=== PATIENT | male | born 1960 | race Caucasian/White ===

== ENCOUNTER 2016-11-15 14:11 | Emergency (ER) | payer MEDICAID ==
[2016-11-15 14:20] VITALS: BMI 34.9
[2016-11-15 14:24] VITALS: BP 134/68; PULSE 74; RESP 18; TEMP 98.1; O2SAT 97
--- NOTE | 2016-11-15 14:43 | C.PDOC ---
History Of Present Illness Pt c/o chronic right knee pain. He states that he ran out of his narcotic pain medications. Time Seen by Provider: 11/15/16 14:34 Chief Complaint (Nursing): Lower Extremity Problem/Injury History Per: Patient Onset/Duration Of Symptoms: Days (chronic) Current Symptoms Are (Timing): Still Present Severity: Moderate Additional History Per: Prior Records Past Medical History Reviewed: Historical Data, Nursing Documentation, Vital Signs Vital Signs: Last Vital Signs Temp 98.1 F 11/15/16 14:23 Pulse 74 11/15/16 14:23 Resp 18 11/15/16 14:23 BP 134/68 11/15/16 14:23 Pulse Ox 97 11/15/16 14:43 - Medical History PMH: Anxiety, Arthritis (right knee , needs knee repalcement), Asthma, Chronic Pain (of right knee) - [facility] Procedures ARTHROCENTESIS (02/03/15) DRAINAGE OF PARATHYROID GLAND, PERCUTANEOUS APPROACH, DIAGN (12/10/15) Family History: States: Unknown Family Hx - Social History Hx Tobacco Use: Yes Hx Alcohol Use: No Hx Substance Use: No - Immunization History Hx Tetanus Toxoid Vaccination: Yes (2 yrs ago) Hx Influenza Vaccination: Yes Hx Pneumococcal Vaccination: Yes Review Of Systems Except As Marked, All Systems Reviewed And Found Negative. Constitutional: Negative for: Fever, Weakness Cardiovascular: Negative for: Chest Pain Respiratory: Negative for: Shortness of Breath Gastrointestinal: Negative for: Vomiting, Abdominal Pain Musculoskeletal: Negative for: Neck Pain, Back Pain, Foot Pain Skin: Negative for: Rash Neurological: Negative for: Weakness, Numbness, Seizures, Altered Mental Status Physical Exam - Physical Exam Appears: Non-toxic, No Acute Distress Skin: Normal Color, Warm, Dry, No Rash Head: Atraumatic, Normacephalic Eye(s): bilateral: Normal Inspection, PERRL, EOMI Neck: Normal ROM, Supple Cardiovascular: Rhythm Regular Respiratory: Normal Breath Sounds, No Accessory Muscle Use Gastrointestinal/Abdominal: Soft, No Tenderness Back: No CVA Tenderness, No Vertebral Tenderness Extremity: Normal ROM, Tenderness (mild right knee), No Pedal Edema, No Calf Tenderness, Capillary Refill (wnl), No Deformity, Swelling (small effusion of right knee) Extremity: Bilateral: Normal Color And Temperature Pulses: Right Dorsalis Pedis: Normal Neurological/Psych: Oriented x3, Normal Motor, Normal Sensation ED Course And Treatment O2 Sat by Pulse Oximetry: 97 Pulse Ox Interpretation: Normal Disposition Counseled Patient/Family Regarding: Diagnosis, Need For Followup, Rx Given, Smoking Cessation - Disposition Disposition: HOME/ ROUTINE Disposition Time: 14:59 Condition: IMPROVED Additional Instructions: Follow up with your doctor and with an orthopedic surgeon for further evaluation and treatment. Return to the ER if you develop redness, fever, worsening of symptoms or if you have any other concerns. Prescriptions: Celecoxib 200 mg PO DAILY #30 capsule traMADol/Acetaminophen [Ultracet 325 MG-37.5 MG] 1 tab PO Q4 PRN #30 tab PRN Reason: Pain, Severe (8-10) Instructions: Knee Pain (ED) - Clinical Impression Clinical Impression: Chronic pain of right knee
== END 2016-11-15 15:12 | disposition home or self-care (01) ==
LOC: C.ER 14:11
DX: M25.561 Pain in right knee (principal); G89.29 Other chronic pain

== ENCOUNTER 2017-02-01 21:52 | Emergency (ER) | payer MEDICAID ==
[2017-02-01 21:52] VITALS: BMI 34.9
[2017-02-01] MEDS ORDERED: Albuterol-Ipratrop 3 mg / 0.5 (3 ml) UD ONE (22:17)
[2017-02-01] MEDS ORDERED: Albuterol-Ipratrop 3 mg / 0.5 (3 ml) UD IH STA (22:33)
--- NOTE | 2017-02-01 22:35 | C.PDOC ---
History Of Present Illness 57 yo male w/PMHx of asthma come in for evaluation of gradual onset of SOB for past 2 days. Today, noted some wheezing. Pt admits, was seen by PMD 2 days ago when received medication for asthma " was unable to fill it out". Otherwise, pt denies fever, chills, recent illness, headache, dizziness, sore throat or tightness, neck pain, CP, diaphoresis, palpitation, abd. pain, N/V, back pain, UTI sx, edema. Ambulate to ED, appears comfortable, not in resp. distress. Time Seen by Provider: 02/01/17 22:21 Chief Complaint (Nursing): Shortness Of Breath History Per: Patient Onset/Duration Of Symptoms: Gradual Current Symptoms Are (Timing): Still Present Past Medical History Reviewed: Historical Data, Nursing Documentation, Vital Signs Vital Signs: Last Vital Signs Temp 97.2 F L 02/01/17 22:12 Pulse 80 02/01/17 22:12 Resp 20 02/01/17 22:18 BP 132/75 02/01/17 22:12 Pulse Ox 99 02/01/17 22:34 - Medical History PMH: Anxiety, Arthritis (right knee , needs knee repalcement), Asthma, Chronic Pain (of right knee) Denies: Kidney Stones, Chronic Kidney Disease Surgical History: Denies: CABG Other Surgeries: not contributory - [facility] Procedures ARTHROCENTESIS (02/03/15) DRAINAGE OF PARATHYROID GLAND, PERCUTANEOUS APPROACH, DIAGN (12/10/15) Family History: States: Unknown Family Hx - Social History Hx Tobacco Use: Yes Hx Alcohol Use: No Hx Substance Use: No - Immunization History Hx Tetanus Toxoid Vaccination: Yes (2 yrs ago) Hx Influenza Vaccination: Yes Hx Pneumococcal Vaccination: Yes Review Of Systems Except As Marked, All Systems Reviewed And Found Negative. Constitutional: Negative for: Fever, Chills Eyes: Negative for: Vision Change ENT: Negative for: Ear Discharge, Nose Discharge, Nose Congestion, Throat Pain, Throat Swelling Cardiovascular: Negative for: Chest Pain, Palpitations, Edema, Light Headedness Respiratory: Positive for: Shortness of Breath, Wheezing. Negative for: Cough, SOB with Excertion, Pleuritic Pain, Sputum Gastrointestinal: Negative for: Nausea, Vomiting, Abdominal Pain, Diarrhea Genitourinary: Negative for: Incontinence Musculoskeletal: Negative for: Neck Pain, Back Pain Neurological: Negative for: Weakness, Numbness, Altered Mental Status, Headache , Dizziness Physical Exam - Physical Exam Appears: Well, No Acute Distress Skin: Normal Color, Warm, Dry, No Rash Eye(s): bilateral: PERRL Ear(s): Bilateral: Normal Nose: No Discharge Oral Mucosa: Moist, No Drooling Throat: No Erythema, No Exudate, No Drooling Neck: Supple Cardiovascular: Rhythm Regular, No JVD, Other ((-) carotid bruits) Respiratory: No Stridor, Wheezing (scattered B/L expiratory wheezing , BS equal B/L.) Gastrointestinal/Abdominal: Soft, No Tenderness, No Distention, No Guarding Back: No CVA Tenderness Extremity: No Pedal Edema Neurological/Psych: Oriented x3, Normal Speech ED Course And Treatment ECG: Interpreted By Me, Viewed By Me ECG Rhythm: Sinus Rhythm Interpretation Of ECG: SR@71/min, NAD, no acute T wave or ST-T changes. O2 Sat by Pulse Oximetry: 99 Pulse Ox Interpretation: Normal - Radiology CXR: Interpreted by Me, Viewed By Me CXR Interpretation: Yes: No Acute Disease Progress Note: On re-evaluation, pt reports moderate improvement in sx. Pt sts, " dont feel SOB any more". Pt is afebrile, hemodynamicaly stable. Non-toxic. PulsEOx 99% RA. neck: Sipple, (-) JVD, (-) carotid bruits. LUngs: CTA B/L, BS equal B/L. CVS: (+)S1S2, reg. Abd: benign. neuorlogicaly intact. CXR, EKG- noraml study. results discussed with pt, has clinical finidngs c/w asthma exacerbation. Pt advised and ref. to f/u with PMD in 2-3 days for re-eval. return to ED if any worsening or new changes. Disposition Counseled Patient/Family Regarding: Studies Performed, Diagnosis, Need For Followup, Rx Given - Disposition Referrals: Raúl Stevens MD [Medical Doctor] - Disposition Time: 00:01 Condition: STABLE Additional Instructions: Encourage fluids Take medication as prescribed Follow up with PMD in 2-3 days for re-evaluation. Return to ED if any worsening or new changes. Prescriptions: Albuterol HFA [Ventolin HFA 90 mcg/actuation (8 g)] 1 puff IH Q6 #1 inhaler Prednisone [Deltasone] 60 mg PO DAILY #6 tablet Instructions: Asthma (ED) Forms: [employer] [facility] (Slovak) - Clinical Impression Clinical Impression: Asthma
[2017-02-01] MEDS ORDERED: MethylPREDNISolone 40 mg Vial IM STA (23:26)
[2017-02-02 00:28] VITALS: BP 133/83; PULSE 70; RESP 16; TEMP 97.4; O2SAT 97
--- NOTE | 2017-02-02 08:41 | RAD ---
HISTORY: Cough COMPARISON: None available. TECHNIQUE: Chest PA and lateral FINDINGS: Examination limited by habitus. LUNGS: No focal consolidation. Please note that chest x-ray has limited sensitivity for the detection of pulmonary masses. PLEURA: No significant pleural effusion identified. No definite pneumothorax . CARDIOVASCULAR: Heart size appears within normal limits. OSSEOUS STRUCTURES: Degenerative changes. VISUALIZED UPPER ABDOMEN: Unremarkable. OTHER FINDINGS: None. IMPRESSION: No focal consolidation, significant pleural effusion, or definite pneumothorax identified.
--- NOTE | 2017-02-04 23:52 | CARD ---
APPROVED REPORT EKG Measurement Heart [id number] <Conclusion> Normal sinus rhythm with sinus arrhythmia Normal ECG
== END 2017-02-02 00:27 | disposition home or self-care (01) ==
LOC: C.ER 21:52
DX: J45.909 Unspecified asthma, uncomplicated (principal); Z72.0 Tobacco use
CPT/HCPCS: 71020; 93005; 96372; 99283; J2920

== ENCOUNTER 2017-06-10 12:12 | Emergency (ER) | payer MEDICAID ==
[2017-06-10 12:44] VITALS: BMI 32.6
[2017-06-10 12:48] VITALS: BP 146/85; PULSE 72; RESP 18; TEMP 98.1; O2SAT 98
--- NOTE | 2017-06-10 13:25 | C.PDOC ---
History Of Present Illness 57 year old male with no significant PMHx presents to the ED with complaints of right sided mid-back pain for 2 days. Patient reports pain is worse with movement. Patient notes he swims daily and has taken Ibuprofen with no relief. Patient denies injury, chest pain, shortness of breath, incontinence, heavy lifting, weakness, numbness, or other complaints at this time Time Seen by Provider: 06/10/17 12:55 Chief Complaint (Nursing): Back Pain History Per: Patient History/Exam Limitations: no limitations Current Symptoms Are (Timing): Still Present Quality Of Discomfort: "Pain" Associated Symptoms: None Exacerbating Factor(s): Movement Recent travel outside of the [place]: No Past Medical History Reviewed: Historical Data, Nursing Documentation, Vital Signs Vital Signs: Last Vital Signs Temp 98.1 F 06/10/17 12:43 Pulse 72 06/10/17 12:43 Resp 18 06/10/17 12:43 BP 146/85 06/10/17 12:43 Pulse Ox 98 06/10/17 20:29 - Medical History PMH: Anxiety, Arthritis (right knee , needs knee repalcement), Asthma, Chronic Pain (of right knee) Surgical History: Denies: CABG - [facility] Procedures ARTHROCENTESIS (02/03/15) DRAINAGE OF PARATHYROID GLAND, PERCUTANEOUS APPROACH, DIAGN (12/10/15) Family History: States: Unknown Family Hx - Social History Hx Tobacco Use: Yes Hx Alcohol Use: No Hx Substance Use: No - Immunization History Hx Tetanus Toxoid Vaccination: Yes (2 yrs ago) Hx Influenza Vaccination: Yes Hx Pneumococcal Vaccination: Yes Review Of Systems Constitutional: Negative for: Fever, Chills Cardiovascular: Negative for: Chest Pain, Palpitations Respiratory: Negative for: Cough, Shortness of Breath Gastrointestinal: Negative for: Nausea, Vomiting, Abdominal Pain Musculoskeletal: Positive for: Back Pain Physical Exam - Physical Exam Appears: Non-toxic, No Acute Distress Skin: Warm, Dry, No Rash, Other (no swelling, no erythema to right mid-back ) Head: Atraumatic, Normacephalic, No Tenderness Eye(s): bilateral: Normal Inspection, PERRL, EOMI Oral Mucosa: Moist Neck: Supple Cardiovascular: Rhythm Regular, No Murmur Respiratory: No Rales, No Rhonchi, No Wheezing Gastrointestinal/Abdominal: Soft, No Tenderness, No Distention, No Guarding, No Rebound Back: No Vertebral Tenderness, Muscle Spasm (right thoracic area), Other ( tenderness to lateral thoracic back) Extremity: Normal ROM, No Tenderness Neurological/Psych: Oriented x3, Normal Speech, Normal Cognition ED Course And Treatment O2 Sat by Pulse Oximetry: 98 (RA) Pulse Ox Interpretation: Normal - Other Rad Chest and Right Ribs XR X-Ray: Viewed By Me, Read By Radiologist Interpretation: FINDINGS: RIGHT RIBS: No no acute fracture or focal lesion visualized. LUNGS: Clear. PLEURA: No pneumothorax or pleural fluid. CARDIOVASCULAR: Normal sized heart. No pulmonary vascular congestion. OTHER FINDINGS: None. IMPRESSION: No acute rib fracture or focal lesion. Clear lungs. Progress Note: Chest and Ribs XR was ordered. Patient was given Toradol and Valium. Medical Decision Making Medical Decision Making: pt with right sided mid back pain, worse with movement, no injury. no sob,, cxr neg for rib fx and ptx, pt feeling greatly improved after 5 mg valium and toradol, will d/c with flexeril. Disposition Counseled Patient/Family Regarding: Studies Performed, Diagnosis, Need For Followup, Rx Given - Disposition Disposition: HOME/ ROUTINE Disposition Time: 14:53 Condition: IMPROVED Additional Instructions: Please continue taking 600 or 800 ibuprofen every 8 hours, with food. Also take Flexeril 10 mg by mouth every 8 hours; makes you sleepy, no driving, working or operating machinery with this medicine. Follow up with your primary care doctor or pain management doctor in a few days. Return to ER for any worse symptoms. Prescriptions: Cyclobenzaprine [Cyclobenzaprine HCl] 10 mg PO Q8 #9 tab Instructions: Muscle Spasm (ED) Forms: [facility] (Serbian), General Discharge Instructions - Clinical Impression Clinical Impression: Thoracic back pain, Back muscle spasm - PA / DOCTOR OF DENTAL MEDICINE / Resident Statement MD/DO has reviewed & agrees with the documentation as recorded. - Scribe Statement The provider has reviewed the documentation as recorded by the Karolinaibmonie Pierre All medical record entries made by the Karolinaibmonie were at my direction and personally dictated by me. I have reviewed the chart and agree that the record accurately reflects my personal performance of the history, physical exam, medical decision making, and the department course for this patient. I have also personally directed, reviewed, and agree with the discharge instructions and disposition.
--- NOTE | 2017-06-10 14:18 | RAD ---
PROCEDURE: Radiographs of the Chest and Right Ribs. HISTORY: right lateral posterior pain COMPARISON: None available. TECHNIQUE: Frontal radiograph of the chest and multiple oblique radiographs of the right ribs were obtained. FINDINGS: RIGHT RIBS: No no acute fracture or focal lesion visualized. LUNGS: Clear. PLEURA: No pneumothorax or pleural fluid. CARDIOVASCULAR: Normal sized heart. No pulmonary vascular congestion. OTHER FINDINGS: None. IMPRESSION: No acute rib fracture or focal lesion. Clear lungs.
== END 2017-06-10 15:01 | disposition home or self-care (01) ==
LOC: C.ER 12:12
DX: M62.830 Muscle spasm of back (principal); M54.6 Pain in thoracic spine
CPT/HCPCS: 71101; 96372; 99284; J1885

== ENCOUNTER 2017-09-11 23:58 | Emergency (ER) | payer MEDICAID ==
[2017-09-11 23:58] VITALS: BMI 32.6
--- NOTE | 2017-09-12 00:54 | C.PDOC ---
History Of Present Illness 57 yo male w/PMHx of Right knee OA, chronic. Pt sts, pain, under PM, come in for re-evaluation of knee pain gradually worsen for past week. Pt admits, pain is chronic, similar in past. Taking currently Flexeril and Meloxicam without improvement, " also had some injection in my knee without improvement". pain is constant, aching, localized over Right knee, worse with movement. Otherwise, pt denies fever, chills, known recent trauma or injury, denies skin changes, Right calf pain, weakness, sensory or vascular deficits to Right leg. Ambulate to ED w / assistance of cane. Time Seen by Provider: 09/12/17 00:17 Chief Complaint (Nursing): Lower Extremity Problem/Injury History Per: Patient Onset/Duration Of Symptoms: Intermittent Episodes Past Medical History Reviewed: Historical Data, Nursing Documentation, Vital Signs Vital Signs: Last Vital Signs Temp 97.8 F 09/12/17 00:07 Pulse 88 09/12/17 00:07 Resp 20 09/12/17 00:07 BP 133/75 09/12/17 00:07 Pulse Ox 95 09/12/17 00:07 - Medical History PMH: Anxiety, Arthritis (right knee , needs knee repalcement), Asthma, Chronic Pain (of right knee) Denies: Kidney Stones, Chronic Kidney Disease Surgical History: Denies: CABG - [facility] Procedures ARTHROCENTESIS (02/03/15) DRAINAGE OF PARATHYROID GLAND, PERCUTANEOUS APPROACH, DIAGN (12/10/15) Family History: States: Unknown Family Hx - Social History Hx Tobacco Use: Yes Hx Alcohol Use: No Hx Substance Use: No - Immunization History Hx Tetanus Toxoid Vaccination: Yes (2 yrs ago) Hx Influenza Vaccination: Yes Hx Pneumococcal Vaccination: Yes Review Of Systems Except As Marked, All Systems Reviewed And Found Negative. Constitutional: Negative for: Fever, Chills ENT: Negative for: Throat Pain Musculoskeletal: Positive for: Other (Right knee pain) Skin: Negative for: Rash, Bruising Neurological: Negative for: Weakness, Numbness Physical Exam - Physical Exam Appears: Well, Non-toxic, No Acute Distress Skin: Normal Color, Warm, No Rash, No Ecchymosis Head: Normacephalic Eye(s): bilateral: PERRL Extremity: No Normal ROM (mod discomfort to Right knee flexion due to pain. Pt wear knee brace.), Tenderness (lateral nad posterior aspect Right with with mild superior/lateral knee effusion. No erythema. no defomrity. No neurovascular deficits to Right foot.), No Pedal Edema, No Calf Tenderness ( right), Capillary Refill (less than 2sec to Right foot), No Deformity Neurological/Psych: Oriented x3, Normal Speech, Normal Motor, Normal Sensation, Normal Reflexes ED Course And Treatment O2 Sat by Pulse Oximetry: 95 Progress Note: On re-evaluation, pt is comfortable, not in any apparent distress. afebrile, hemodynamicaly stable. Non-toxic. Ambulatory in ED with stable gait. RLE: exam c/w knee arthralgia, smal anterior/lateral knee effusion , no erythema, no flactulance. NO neurovascular deficits distally, no Right calf tenderness. Neurologicaly intact. Pt has clinical findings c/w Right knee arthralgia, hx of OA, chronic Right knee pain. Pt advised on course of ds. ref. to f/u with Ortho, PM in 1-2 days for re-evaluation. Return to ED if any worsening or new changes. Disposition Counseled Patient/Family Regarding: Diagnosis, Need For Followup, Rx Given - Disposition Referrals: Kofi Owen MD [Staff Provider] - Disposition: HOME/ ROUTINE Disposition Time: 00:57 Condition: STABLE Additional Instructions: Knee brace Avoid prolong walking take medication as prescribed Follow up with Orthopedist and Pain Management in 1-2 days for re-evaluation. Return to ED if any worsening or new changes. Prescriptions: Prednisone [Deltasone] 60 mg PO DAILY #9 tablet traMADol [Ultram] 50 mg PO TID #10 tab Instructions: Chronic Knee Pain, Osteoarthritis (DC) - Clinical Impression Clinical Impression: Osteoarthritis, knee
[2017-09-12 12:00] VITALS: BP 133/75; PULSE 88; RESP 20; TEMP 97.8; O2SAT 95
== END 2017-09-12 01:09 | disposition home or self-care (01) ==
LOC: C.ER 23:58
DX: M17.9 Osteoarthritis of knee, unspecified (principal); Z72.0 Tobacco use
CPT/HCPCS: 96372; 99284; J2930

== ENCOUNTER 2017-10-30 23:26 | Emergency (ER) | payer MEDICAID ==
[2017-10-30 23:26] VITALS: BMI 32.6
[2017-10-31 00:01] VITALS: BP 150/82; PULSE 88; RESP 16; TEMP 98.3; O2SAT 97
[2017-10-31] MEDS ORDERED: Amoxicillin-Clav 875-125 mg Tab PO STA (00:40)
--- NOTE | 2017-10-31 00:50 | C.PDOC ---
History Of Present Illness 57 year old male presents to the ED for evaluation of dry throat and painful swallowing which began two weeks ago. Patient states he was evaluated by his PMD two weeks ago and was prescribed Zithromax, without relief. He presents to the ED today because his throat has been dry and he feels like it will "close up " when he is sleeping. He denies fever, chills, cough. Time Seen by Provider: 10/30/17 23:53 Chief Complaint (Nursing): ENT Problem History Per: Patient History/Exam Limitations: None Onset/Duration Of Symptoms: Days Current Symptoms Are (Timing): Still Present Past Medical History Reviewed: Historical Data, Nursing Documentation, Vital Signs Vital Signs: Last Vital Signs Temp 98.3 F 10/30/17 23:52 Pulse 88 10/30/17 23:52 Resp 16 10/30/17 23:52 BP 150/82 10/30/17 23:52 Pulse Ox 97 10/31/17 01:21 - Medical History PMH: Anxiety, Arthritis (right knee , needs knee repalcement), Asthma, Chronic Pain (of right knee) Denies: Kidney Stones, Chronic Kidney Disease Surgical History: No Surg Hx Denies: CABG - [facility] Procedures ARTHROCENTESIS (02/03/15) DRAINAGE OF PARATHYROID GLAND, PERCUTANEOUS APPROACH, DIAGN (12/10/15) Family History: States: Unknown Family Hx - Social History Hx Tobacco Use: Yes Hx Alcohol Use: Yes Hx Substance Use: No - Immunization History Hx Tetanus Toxoid Vaccination: No (2 yrs ago) Hx Influenza Vaccination: No Hx Pneumococcal Vaccination: No Review Of Systems Constitutional: Negative for: Fever, Chills ENT: Positive for: Throat Pain Respiratory: Negative for: Cough Physical Exam - Physical Exam Appears: Non-toxic, No Acute Distress Skin: Normal Color, Warm, Dry, No Rash Head: Atraumatic, Normacephalic Eye(s): bilateral: Normal Inspection Oral Mucosa: Moist Throat: Erythema, No Exudate Chest: Symmetrical, No Deformity, No Tenderness Cardiovascular: Rhythm Regular, No Murmur Respiratory: Normal Breath Sounds, No Rales, No Rhonchi, No Wheezing Neurological/Psych: Oriented x3, Normal Speech, Normal Cognition Gait: Steady ED Course And Treatment O2 Sat by Pulse Oximetry: 97 (on RA ) Pulse Ox Interpretation: Normal Medical Decision Making Medical Decision Making: Progress: Rapid Strep test ordered, resulted negative. Augmentin PO, Motrin PO, and Prednisone PO administered. Disposition - Disposition Referrals: Brady Braswell MD [Staff Provider] - Kathie Forte DO [Resident] - Disposition: HOME/ ROUTINE Disposition Time: 00:30 Condition: GOOD Additional Instructions: FOLLOW UP WITH THE ENT WITHIN 2-3 DAYS. RETURN IF WORSENED. Prescriptions: Amoxicillin/Clavulanate [Augmentin 875 MG-125 MG] 1 tab PO BID #14 tab Ibuprofen [Motrin] 600 mg PO TID #21 tab predniSONE [Prednisone] 20 mg PO BID #10 tab Instructions: Strep Throat (DC) Forms: [facility] (Yi) - Clinical Impression Clinical Impression: Pharyngitis - PA / MANAGER [employer]ST / Resident Statement / has reviewed & agrees with the documentation as recorded. - Scribe Statement The provider has reviewed the documentation as recorded by the Scribe (Marilee Castro) All medical record entries made by the Scribe were at my direction and personally dictated by me. I have reviewed the chart and agree that the record accurately reflects my personal performance of the history, physical exam, medical decision making, and the department course for this patient. I have also personally directed, reviewed, and agree with the discharge instructions and disposition.
[2017-10-31] MEDS ORDERED: Amoxicillin-Clav 875-125 mg Tab PO ONE (00:55)
== END 2017-10-31 01:02 | disposition home or self-care (01) ==
LOC: C.ER 23:26
DX: J02.9 Acute pharyngitis, unspecified (principal)

== ENCOUNTER 2018-11-14 15:56 | Emergency (ER) | payer MEDICAID ==
[2018-11-14 15:57] VITALS: BMI 32.6
[2018-11-14 16:07] VITALS: BP 115/71; PULSE 100; RESP 20; TEMP 99.3; O2SAT 97
--- NOTE | 2018-11-14 16:37 | C.PDOC ---
History Of Present Illness 58 y/o male pt presents to the ER by ambulance for alcohol and anxiety. Pt has no known psych hx. Pt is argumentative and verbally abusive with staff and security. Pt could not be redirected for evaluation. Pt does not have claim to have any complaints except that he wants to be evaluated. Pt denies any psych medications and psych hospitalization. Pt denies HI and SI. Time Seen by Provider: 11/14/18 16:34 Chief Complaint (Nursing): Psychiatric Evaluation History Per: Patient History/Exam Limitations: no limitations Onset/Duration Of Symptoms: Hrs Current Symptoms Are (Timing): Still Present Suicide/Self Injury Attempted (Context): None Modifying Factor(s): Alcohol Associated Symptoms: Anxiety Past Medical History Reviewed: Historical Data, Nursing Documentation, Vital Signs Vital Signs: Last Vital Signs Temp 99.3 F 11/14/18 16:02 Pulse 100 H 11/14/18 16:02 Resp 20 11/14/18 16:02 BP 115/71 11/14/18 16:02 Pulse Ox 97 11/14/18 16:02 Primary Care Provider: Non [facility] Provider, - Medical History PMH: Anxiety, Arthritis (right knee , needs knee repalcement), Asthma, Chronic Pain (of right knee) - [facility] Procedures ARTHROCENTESIS (02/03/15) DRAINAGE OF PARATHYROID GLAND, PERCUTANEOUS APPROACH, DIAGN (12/10/15) Family History: States: Unknown Family Hx - Social History Hx Tobacco Use: Yes Hx Alcohol Use: Yes Hx Substance Use: No - Immunization History Hx Tetanus Toxoid Vaccination: No (2 yrs ago) Hx Influenza Vaccination: No Hx Pneumococcal Vaccination: No Review Of Systems Except As Marked, All Systems Reviewed And Found Negative. Review Of Systems: ROS cannot be obtained secondary to pt's inabilty to answer questions. Constitutional: Positive for: Other (alcohol abuse ) Psych: Positive for: Anxiety. Negative for: Suicidal ideation, Other (HI) Physical Exam - Physical Exam Appears: Other (large male ) ED Course And Treatment O2 Sat by Pulse Oximetry: 97 Medical Decision Making Medical Decision Making: meghana corona was called, pt was dressed and removed by security. Outside the department, pt refused to leave, argumentative with security, pt called the police and police removed pt from premises but not under arrest. verbally abusive, non-compliant with staff and Security no specific complaint unclear if alcohol/substance abuse no SI/HI @ eval and discharge Disposition Doctor Will See Patient In The: Office Counseled Patient/Family Regarding: Studies Performed, Diagnosis - Disposition Referrals: Alcoholics Anonymous [Outside] [facility] [Outside] [facility] [Outside] [facility] [Outside] [facility] [Outside] [facility] [Outside] Disposition: HOME/ ROUTINE Disposition Time: 16:37 Condition: GOOD Additional Instructions: seek outpatient resources for your anxiety and alcohol issues Instructions: Alcohol Abuse and Alcoholism (DC) Forms: [facility] (Portuguese) - Clinical Impression Clinical Impression: Alcohol abuse, Behavior disturbance - Scribe Statement The provider has reviewed the documentation as recorded by the Scribe Sheppard Do Provider Attestation: All medical record entries made by the Scribe were at my direction and personally dictated by me. I have reviewed the chart and agree that the record accurately reflects my personal performance of the history, physical exam, medical decision making, and the department course for this patient. I have also personally directed, reviewed, and agree with the discharge instructions and disposition.
== END 2018-11-14 16:49 | disposition home or self-care (01) ==
LOC: C.ER 15:56
DX: F10.10 Alcohol abuse, uncomplicated (principal); F91.9 Conduct disorder, unspecified; Y90.9 Presence of alcohol in blood, level not specified